=== PATIENT | male | born 1985 | race Caucasian/White ===

== ENCOUNTER 2016-09-13 06:27 | Emergency (ER) | payer MEDICAID ==
[~2016-09-13] VITALS: Ht 167.6 cm; Wt 151.1 kg
[~2016-09-13 06:27] MED LIST: CLEOCIN HCL300 MG PO; LEVAQUIN750 MG PO; MOTRIN600 MG PO
[2016-09-13 06:29] VITALS: BP 145/90
--- NOTE | 2016-09-13 06:45 | NUR ---
PATIENT AMBULATED TO ER BED 8.
--- NOTE | 2016-09-13 07:00 | NUR ---
31/M BIB C/O HEADACHE X 2DAYS.DENIES N/V/D; SKIN IS PINK/WARM/DRY; AAOX4 WITH EVEN AND STEADY GAIT; LUNGS CLEAR BL; HR EVEN AND REGULAR; PT DENIES ANY FEVER, CP, SOB, OR COUGH AT THIS TIME; PATIENT STATES PAIN OF 10/10 AT THIS TIME; VSS; PATIENT POSITIONED FOR COMFORT; HOB ELEVATED; BEDRAILS UP X2; BED DOWN. ER MD MADE AWARE OF PT STATUS.
--- NOTE | 2016-09-13 07:07 | NUR ---
ER MD DR MCCARTY EVALUATING PT AT BEDSIDE.
[2016-09-13] MEDS ORDERED: METOCLOPRAMIDE 10 MG TAB PO ONE (07:15)
[2016-09-13] MEDS ORDERED: diphenhydrAMINE 50 MG CAP PO ONE (07:15)
[2016-09-13] MEDS ORDERED: DEXAMETHASONE 4 MG TAB PO ONE (07:15)
--- NOTE | 2016-09-13 07:20 | NUR ---
Patient appears to be resting comfortably in bed. Respirations even and unlabored.WILL CONTINUE TO MONITOR .
[2016-09-13] MEDS ORDERED: KETOROLAC 30 MG/ML VIAL IM ONE (07:55)
[2016-09-13 08:27] VITALS: BP 154/95
--- NOTE | 2016-09-13 08:27 | NUR ---
Patient discharged with BP154/95; HEADACHE DEPREASE PAIN FROM 10/19 TO 06/19; MD WRAY AWARE. Written and verbal after care instructions given and explained. Patient alert, oriented and verbalized understanding of instructions. Ambulatory with steady gait. All questions addressed prior to discharge. ID band removed. Patient advised to follow up with PMD. Rx of ZOFRAN & EXCEDRIN MIGRAINE given. Patient educated on indication of medication including possible reaction and side effects. Opportunity to ask questions provided and answered.
== END 2016-09-13 08:27 | disposition home or self-care (01) ==
LOC: MED 06:27
DX: R51 Headache (principal); J45.909 Unspecified asthma, uncomplicated
CPT/HCPCS: 96372; 99284; J1885; J8597; Q0163

== ENCOUNTER 2017-04-13 08:15 | Emergency (ER) | payer MEDICAID ==
[~2017-04-13] VITALS: Ht 170.2 cm; Wt 157.5 kg
[~2017-04-13 08:15] MED LIST changes: -CLEOCIN HCL300 MG PO; +CLIN300C2 PO; +IBUP-2213 PO; -LEVAQUIN750 MG PO; +LEVO750T2 PO; -MOTRIN600 MG PO
[2017-04-13 08:37] VITALS: BP 139/95
--- NOTE | 2017-04-13 08:48 | NUR ---
PT AMBULATES TO O-F
[2017-04-13] MEDS ORDERED: IBUPROFEN 800 MG TAB ONE (08:54)
--- NOTE | 2017-04-13 09:01 | NUR ---
PT STATES SOB AND FEVER SINCE YESTERDAY. A&OX4. FEVER PRESENT. COOLING MEASURES IMPMLEMENTED. SITTING IN CHAIR. ABLE TO VERBALIZE NEEDS. BREATHING IS SHALLOW WITH EXPIRATORY WHEEZING LEFT LOBE WITH DININISHED LUNG SOUNDS THROUGHOUT. NOTIFIED. YARELY TO MONITOR.
[2017-04-13] MEDS ORDERED: DEXAMETHASONE 10 MG/ML VIAL IM ONE (09:20)
[2017-04-13] MEDS ORDERED: cefTRIAXone 1,000 MG in LIDOCAINE 1% ***ER ONLY *** 2.1 ML IM ONE (09:20)
[2017-04-13] MEDS ORDERED: diphenhydrAMINE 50 MG/ML VIAL IM ONE (09:20)
--- NOTE | 2017-04-13 09:31 | NUR ---
CALLED PHARMACY;ASKED MISS ARGUETA IF WE CAN USE THE 2% LIDOCAINE INSTEAD OF THE 1% LIDOCAINE;PHARMACIST SAID WE CAN USE IT BUT GIVE HALF OF THE DOSE OF 2 % 2.1 ML LIDOCANE.
[2017-04-13] MEDS ORDERED: cefTRIAXone 1,000 MG VIAL ONE (09:36)
[2017-04-13] MEDS ORDERED: LIDOCAINE 2% 1000 MG/50 ML VIAL INJ ONE (09:39)
[2017-04-13] MEDS: OSELTAMIVIR PHOSPHATE 75 MG CAP PO SCH ×2 (09:53→10:11)
--- NOTE | 2017-04-13 10:20 | NUR ---
PATIENT RESPIRATIONS HAVE REDUCED TO 20. LUNGS REMAIN DIMINISHED WITH LEFT SIDE WHEEZING BUT O2 VIA NC WAS STOPPED PT MAINTAINS AN O2SAT OF 96% AT ROOM AIR. NO C/O SOB OR DIFFICULTY BREATHING. FEVER IS CURRETLY GONE WITH TEMP OF 89.9. PT STATES HE IS FEELING SLIGHTLY BETTER. AT SIDE. SITTING IN CHAIR AWAITING FURTHER MD ORDERS. MD AWARE. CONTINUE TO MONITOR.
[2017-04-13 10:58] VITALS: BP 142/82
--- NOTE | 2017-04-13 11:01 | NUR ---
Patient discharged with v/s stable. Written and verbal after care instructions given and explained. Patient alert, oriented and verbalized understanding of instructions. Ambulatory with steady gait. All questions addressed prior to discharge. ID band removed. Patient advised to follow up with PMD. Rx of PROMATHAZINE, PREDNISONE, AND LEVAQUIN given. Patient educated on indication of medication including possible reaction and side effects. Opportunity to ask questions provided and answered.
== END 2017-04-13 11:01 | disposition home or self-care (01) ==
LOC: MED 08:15
DX: J40 Bronchitis, not specified as acute or chronic (principal); R51 Headache; R50.9 Fever, unspecified; J45.909 Unspecified asthma, uncomplicated; Z79.899 Other long term (current) drug therapy
CPT/HCPCS: 71046; 96372; 99284; J0696; J1100; J1200; J2001

== ENCOUNTER 2019-04-26 07:29 | Emergency (ER) | payer MEDICAID ==
[~2019-04-26] VITALS: Ht 167.6 cm; Wt 167.9 kg
[2019-04-26 07:34] VITALS: BP 146/89
[2019-04-26 09:26] VITALS: BP 146/89
== END 2019-04-26 09:25 | disposition home or self-care (01) ==
LOC: MED 07:29
DX: J18.9 Pneumonia, unspecified organism (principal); R04.2 Hemoptysis; J45.909 Unspecified asthma, uncomplicated; Z79.899 Other long term (current) drug therapy
CPT/HCPCS: 71046; 87804; 99284